=== PATIENT | female | born 1950 | race Hispanic/Latino ===

== ENCOUNTER 2023-05-29 14:56 | Emergency (ER) | payer OTHER ==
[~2023-05-29] VITALS: Ht 154.9 cm; Wt 61.2 kg
[2023-05-29 15:36] LABS: BASOPHILS # (AUTO) 0.07 K/uL (0.00-0.20); BASOPHILS % (AUTO) 0.5 % (0.0-5.0); EOSINOPHILS # (AUTO) 0.04 K/uL (0.00-0.70); EOSINOPHILS % (AUTO) 0.3 % (0.0-8.0); HEMATOCRIT 41.3 % (36-48); IMMATURE GRANULOCYTE ABSOLUTE 0.09 K/uL (0-1); LYMPHOCYTES # (AUTO) 0.8 K/uL (1.0-4.8); LYMPHOCYTES % (AUTO) 5.2 % (21.0-51.0); MEAN CORPUSCULAR HEMOGLOBIN 30.5 pg (27.0-33.0); MEAN CORPUSCULAR HGB CONC 36.3 g/dL (32.0-36.0); MEAN CORPUSCULAR VOLUME 83.9 fL (79-99); MONOCYTES # (AUTO) 0.5 K/uL (0.1-1.0); NEUTROPHILS # (AUTO) 13.8 K/uL (1.8-7.7); NEUTROPHILS % (AUTO) 90.4 % (40.0-77.0); PLATELET COUNT (AUTO) 238 K/uL (130-400); RED BLOOD CELL COUNT(AUTO) 4.92 MIL/uL (4.00-5.50); RED CELL DISTRIBUTION WIDTH 12.3 % (11.0-15.5); WHITE BLOOD COUNT (AUTO) 15.2 K/uL (4.8-10.8)
[2023-05-29 15:49] LABS: POTASSIUM 4.3 mmol/L (3.5-5.1)
[2023-05-29 15:51] LABS: ALBUMIN 3.9 g/dL (3.5-5.0); BILIRUBIN,TOTAL 0.7 mg/dL (0.2-1.0); TOTAL PROTEIN, SERUM 8.5 g/dL (6.0-8.3)
[2023-05-29] MEDS: METOCLOPRAMIDE 10 MG/2 ML VIAL IVP ONE (16:49)
[2023-05-29] MEDS: FAMOTIDINE 20MG VIAL IV ONE (16:49)
[2023-05-29] MEDS: 0.9%NACL 1000ML 1,000 ML IV ONE (16:49)
[2023-05-29 17:23] LABS: APPEARANCE,URINE CLEAR (CLEAR); BILIRUBIN,URINE NEGATIVE (NEGATIVE); COLOR,URINE LIGHT-YELLOW (YELLOW); GLUCOSE, URINE (UA) >=1000 mg/dL (NEGATIVE); KETONES,URINE 40 mg/dL (NEGATIVE); LEUKOCYTE ESTERASE ,URINE NEGATIVE Leu/uL (NEGATIVE); NITRATE,URINE NEGATIVE (NEGATIVE); OCCULT BLOOD,URINE NEGATIVE (NEGATIVE); PH,URINE 5.5 (5.0-8.0); PROTEIN,URINE 20 mg/dL (NEGATIVE); UROBILINOGEN,URINE 0.2 mg/dL (0.2-1.0)
[2023-05-29 17:24] LABS: ADD UA MICROSCOPIC YES
[2023-05-29 17:25] LABS: SQUAMOUS EPITHELIAL CELL,UR RARE /HPF (0-2); WBC,URINE 0-1 /HPF (0-1)
[2023-05-29] MEDS ORDERED: IOHEXOL 350 MG/ML 100ML INFUS..BTL IV ONE (18:03)
[2023-05-29 18:54] VITALS: BP 150/75; PULSE 98; RESP 16; O2SAT 98
[2023-05-29] MEDS ORDERED: ONDA4TAB10 PO (20:00)
[2023-05-29] MEDS ORDERED: DICY20TA2 PO (20:00)
== END 2023-05-29 20:11 | disposition home or self-care (01) ==
LOC: EDH 14:56
DX: K52.9 Noninfective gastroenteritis and colitis, unspecified (principal)
CPT/HCPCS: 99285; 74177; 96374; 96375; 80053; 83690; 85025; 81001; 36415; J3490; J7030; J2765; Q9967